=== PATIENT | female | born 1955 | race Caucasian/White ===

== ENCOUNTER 2019-08-08 15:38 | Emergency (ER) | payer OTHER ==
[~2019-08-08] VITALS: Ht 167.6 cm; Wt 81.2 kg
[2019-08-08 15:51] VITALS: Ht 167.6 cm; Wt 81.2 kg
[2019-08-08 16:57] VITALS: BP 155/71
== END 2019-08-08 16:57 | disposition home or self-care (01) ==
LOC: ED 15:38
DX: S93.401A Sprain of unspecified ligament of right ankle, initial encounter (principal); I10 Essential (primary) hypertension; W01.0XXA Fall on same level from slipping, tripping and stumbling without subsequent striking against object, initial encounter; Y93.89 Activity, other specified; Y92.89 Other specified places as the place of occurrence of the external cause; Y99.8 Other external cause status